=== PATIENT | male | born 1960 | race Caucasian/White ===

== ENCOUNTER → 2020-04-10 10:30 | Outpatient (BNVA) | payer BC, SELFPAY | PROVIDERS: PCP Internal Medicine; Visit Provider Urology | DX: N32.0 Bladder-neck obstruction (principal); C61 Malignant neoplasm of prostate; T19.0XXA Foreign body in urethra, initial encounter; X58.XXXA Exposure to other specified factors, initial encounter; Y93.9 Activity, unspecified; Y92.9 Unspecified place or not applicable; Y99.8 Other external cause status | CPT/HCPCS: 99212 ==

== ENCOUNTER → 2020-06-23 09:41 | Outpatient (BNVA) | payer SELFPAY | PROVIDERS: PCP Internal Medicine; Visit Provider Urology | DX: Z76.89 Persons encountering health services in other specified circumstances (principal) ==

== ENCOUNTER → 2020-07-07 10:41 | Outpatient (BNVA) | payer BC, SELFPAY | PROVIDERS: PCP Internal Medicine; Visit Provider Urology | DX: N39.3 Stress incontinence (female) (male) (principal); N32.81 Overactive bladder; N32.0 Bladder-neck obstruction; Z85.46 Personal history of malignant neoplasm of prostate | CPT/HCPCS: 81002 ==

== ENCOUNTER 2020-07-12 20:06 | Emergency (ER) | payer BC, SELFPAY ==
[2020-07-12 20:54] VITALS: BP 163/91; PULSE 92; RESP 16; TEMP 37; O2SAT 98; BMI 29.3
--- NOTE | 2020-07-12 21:15 | ED.MALEGU ---
HPI - Male Genitourinary General Chief complaint: Urogenital-Male Stated complaint: Trouble urinating Time Seen by Provider: 07/12/20 21:15 Source: patient Mode of arrival: ambulatory Limitations: no limitations History of Present Illness MD Complaint: other (urinary retention) Onset (ago): hour(s) (started at 4am TODAY) Duration: constant Location: penis Severity: similar to previous episodes Quality: aching Relieving factors: none Exacerbating factors: none Context: other (states since surgery in february for renal stones has had catheters, urinary incontinence, urinary retention, UTIs) Associated symptoms: Reports dysuria Related Data Home Medications Medication Instructions Recorded Confirmed glipizide 2.5 mg tablet, extended 2.5 mg PO DAILY 04/07/20 04/10/20 release 24 hr losartan 50 mg tablet 50 mg PO DAILY 04/07/20 04/10/20 metformin 500 mg tablet,extended 1,000 mg PO BID 04/07/20 04/10/20 release 24 hr pravastatin 20 mg tablet 20 mg PO BEDTIME 04/07/20 04/10/20 Previous Rx's Medication Instructions Recorded oxybutynin chloride 10 mg 10 mg PO DAILY 90 Days #90 tab 07/07/20 tablet,extended release 24 hr Allergies Allergy/AdvReac Type Severity Reaction Status Date / Time penicillin V Allergy Unknown Unknown Verified 07/12/20 21:01 Penicillins [PENICILLINS] Allergy Unknown TOLD Verified 07/12/20 21:01 CHILD NEVER TO TAKE AGAIN Review of Systems Review of Systems: Constitutional : No Fever, No Chills ENT/Mouth : No sore throat Eyes: No Eye Pain, No Swelling, No Redness Cardiovascular : No Chest Pain, No SOB Respiratory : No Cough, No Sputum, No Wheezing Gastrointestinal : no Nausea, no Vomiting, No Diarrhea, positive abdominal pain Genitourinary : positive Dysuria, no urinary frequency, positive Hematuria, no Flank Pain, positive retention Musculoskeletal : No joint pain, No Myalgias Skin : No Skin Lesions, No rash Neuro : No Weakness, No Numbness, No Headache Psych : No Anxiety/Panic, No Depression Heme/Lymph: No Bruising, No Lymphadenopathy Endocrine : No Polyuria, No Polydipsia All other systems reviewed and are negative PMFSH Past Medical History Attestation statement: The following information was validated with the patient. Source: old records reviewed Medical History Bladder neck stricture Kidney stones Overactive bladder Prostate cancer Stress incontinence Surgical History History of cystoscopy History of prostatectomy Family History Family History Father Prostate cancer Mother No problems noted. Social History Social History Smoked in Last 30 Days: No Use of substances other than those prescribed or required for medical reasons: No Advance Directives: No Advance Directives Information Provided: No Physical Exam Vital Signs: Vital Signs: Last Vital Signs Temp 98.6 F 07/12/20 20:54 Pulse 92 07/12/20 20:54 Resp 16 07/12/20 20:54 BP 163/91 H 07/12/20 20:54 Pulse Ox 98 07/12/20 20:54 Body Mass Index 29.3 Appearance: Alert. Oriented X3. No acute distress. Anxious Eyes: Pupils equal, round and reactive to light. ENT: Pharynx normal. Neck: Normal inspection. Neck supple. CVS: Normal heart rate and rhythm. Pulses normal. Respiratory: No respiratory distress. Breath sounds normal. Abdomen: Soft and mild suprapubic tenderness no rebound or guarding Skin: Skin warm and dry. Normal skin color. Normal skin turgor. Extremities: No lower extremity edema. No calf ttp Neuro: Oriented X 3. No motor deficit. No sensory deficit. Course Course Course Narrative: attempt at chandra placement then blood clots came out after and since patient is able to void, no further bleeding, the clots have resolved, he doesn't want a chandra now since he can void, will follow up with his urologist, unsure was clots are from - CT scan unchanged just prior to DC started to have bloody urine - wants chandra, will irrigate and place chandra catheter placed with Dr. Hernandez no further bleeding, urine is clear, suspect iatrogenic injury with first attempt at catheter MDM - Male Genitourinary MDM Narrative Medical decision making narrative: 60 yo male with hx of stones, prostate cancer s/p prostatectomy now with bouts of UTI, incontinence and retention, has had chandra's before at this time will need labs, UA, CT scan for stone, chandra catheter placement dispo per results and findings. Lab Data Result diagrams: 07/12/20 22:56 07/12/20 22:56 Labs: Lab Results 07/12/20 07/12/20 07/12/20 Range/Units 22:50 22:56 22:56 WBC 4.9 (4.8-10.8) X10*3/uL RBC 4.45 L (4.60-5.80) X10*6/uL Hgb 14.1 (14.0-18.0) g/dl Hct 41.4 L (42-52) % MCV 93.0 (80-98) fL MCH 31.7 (27.0-33.0) pg MCHC 34.1 (31.0-36.0) g/dl RDW 12.2 (11.0-16.0) % Plt Count 159 L (160-400) X10*3/uL MPV 10.7 (9.4-12.4) fL Immature Gran % (Auto) 0.4 (0.0-0.4) % Neut % (Auto) 58.3 (45-73) % Lymph % (Auto) 23.8 (20-40) % [place] % (Auto) 14.9 H (2-11) % Eos % (Auto) 1.8 (0-4) % Baso % (Auto) 0.8 (0-2) % Lymph # (Auto) 1.2 (1.2-4.9) X10*3/uL [place] # (Auto) 0.7 (0.1-1.2) X10*3/uL Eos # (Auto) 0.1 (0.0-0.4) X10*3/uL Baso # (Auto) 0.0 (0.0-0.2) X10*3/uL Abs Immat Gran (auto) 0.02 (0.00-0.03) X10*3/uL Absolute Neuts (auto) 2.9 (2.0-8.3) X10*3/uL Absolute Nucleated RBC 0.000 (0.0-0.012) X10*3/uL Nucleated RBC % (auto) 0.0 (0.0-0.2) /100WBC Smear Tech's Comments VERIFIED Sodium 142 (135-145) mmol/L Potassium 4.1 (3.3-5.1) mmol/l Chloride 106 (96-108) mmol/L Carbon Dioxide 24 (22-29) mmol/L Anion Gap 16 (12-20) BUN 19 H (9-16) mg/dL Creatinine 1.14 (0.5-1.4) mg/dL Estim Creat Clear Calc 72.2 Estimated GFR > 60 Random Glucose 193 H (60-115) mg/dL Calcium 9.1 (8.4-10.2) mg/dL Magnesium (1.6-2.6) mg/dL Total Bilirubin (0.0-1.0) mg/dL Direct Bilirubin (0.0-0.5) mg/dL AST (5-37) U/L ALT (0-40) U/L Alkaline Phosphatase (39-117) U/L Total Protein (6.5-8.0) g/dL Albumin (3.5-5.0) g/dL Lipase (8-78) U/L Urine Color RED Urine Appearance CLOUDY Urine pH 5.5 (5.0-8.0) Ur Specific [place] >= 1.030 H (1.005-1.025) Urine Protein 1+ H (NEG-TRACE) MG/DL Urine Glucose (UA) NEG (NEG) MG/DL Urine Ketones 5 (NEG) MG/DL Urine Blood 3+ H (NEG) Urine Nitrite NEG (NEG) Ur Leukocyte Esterase NEG (NEG) Urine RBC TNTC H (0) /HPF Urine WBC 0 (0-4) /HPF Ur Squamous Epith Cells 1+ /LPF Urine Bacteria NONE /LPF 07/12/20 Range/Units 22:56 WBC (4.8-10.8) X10*3/uL RBC (4.60-5.80) X10*6/uL Hgb (14.0-18.0) g/dl Hct (42-52) % MCV (80-98) fL MCH (27.0-33.0) pg MCHC (31.0-36.0) g/dl RDW (11.0-16.0) % Plt Count (160-400) X10*3/uL MPV (9.4-12.4) fL Immature Gran % (Auto) (0.0-0.4) % Neut % (Auto) (45-73) % Lymph % (Auto) (20-40) % [place] % (Auto) (2-11) % Eos % (Auto) (0-4) % Baso % (Auto) (0-2) % Lymph # (Auto) (1.2-4.9) X10*3/uL [place] # (Auto) (0.1-1.2) X10*3/uL Eos # (Auto) (0.0-0.4) X10*3/uL Baso # (Auto) (0.0-0.2) X10*3/uL Abs Immat Gran (auto) (0.00-0.03) X10*3/uL Absolute Neuts (auto) (2.0-8.3) X10*3/uL Absolute Nucleated RBC (0.0-0.012) X10*3/uL Nucleated RBC % (auto) (0.0-0.2) /100WBC Smear Tech's Comments Sodium (135-145) mmol/L Potassium (3.3-5.1) mmol/l Chloride (96-108) mmol/L Carbon Dioxide (22-29) mmol/L Anion Gap (12-20) BUN (9-16) mg/dL Creatinine (0.5-1.4) mg/dL Estim Creat Clear Calc Estimated GFR Random Glucose (60-115) mg/dL Calcium (8.4-10.2) mg/dL Magnesium 1.7 (1.6-2.6) mg/dL Total Bilirubin 0.3 (0.0-1.0) mg/dL Direct Bilirubin < 0.2 (0.0-0.5) mg/dL AST 25 (5-37) U/L ALT 38 (0-40) U/L Alkaline Phosphatase 46 (39-117) U/L Total Protein 7.0 (6.5-8.0) g/dL Albumin 4.3 (3.5-5.0) g/dL Lipase 25 (8-78) U/L Urine Color Urine Appearance Urine pH (5.0-8.0) Ur Specific [place] (1.005-1.025) Urine Protein (NEG-TRACE) MG/DL Urine Glucose (UA) (NEG) MG/DL Urine Ketones (NEG) MG/DL Urine Blood (NEG) Urine Nitrite (NEG) Ur Leukocyte Esterase (NEG) Urine RBC (0) /HPF Urine WBC (0-4) /HPF Ur Squamous Epith Cells /LPF Urine Bacteria /LPF Discharge Plan Discharge Clinical Impression: Acute urinary retention, Chandra catheter in place Hematuria Qualifiers: Hematuria type: gross Qualified Code(s): R31.0 - Gross hematuria Patient Disposition: Home, Self-Care Instructions: Urinary Retention in Men (ED), Chandra Catheter Placement and Care (ED) Additional Instructions: return to ED for any worsening symptoms or concerns IF YOU CANNOT VOID IN THE NEXT [address] SCAN FINDINGS FROM TODAY BLADDER: Nondistended. Hyperattenuating linear material is noted at the posteroinferior aspect of the urinary bladder (6:63/140) most of which appears external to the urinary bladder and may reflect suture material from prior surgery. There is a small round hyperattenuating structure which appears to be in the posterior urinary bladder (6:68/40) measuring up to 0.5 cm which may reflect a small urinary bladder calculus. Of note, this finding is unchanged relative to 02/27/2020 examination. PLEASE FOLLOW UP WITH YOUR UROLOGIST to have chandra assessed and removed in next week Prescriptions: No Action metformin 500 mg tablet extended release 24 hr 1,000 mg PO BID RF: 0 pravastatin 20 mg tablet 20 mg PO BEDTIME RF: 0 glipizide 2.5 mg tablet extended release 24hr 2.5 mg PO DAILY RF: 0 losartan 50 mg tablet 50 mg PO DAILY RF: 0 oxybutynin chloride 10 mg tablet extended release 24hr 10 mg PO DAILY 90 Days Qty: 90 RF: 0
--- NOTE | 2020-07-12 21:25 | CT_ITS ---
EXAMINATION: CT ABDOMEN AND PELVIS WITHOUT CONTRAST CLINICAL INFORMATION: Urinary retention. History of stones. COMPARISON: CT abdomen and pelvis dated 02/27/2020. TECHNIQUE: Multidetector volumetric imaging was performed from the superior aspect of the liver through the pubic symphysis. Sagittal and coronal reformatted images were obtained on the technologist's workstation. This CT examination was performed using dose optimization techniques as appropriate, variously including the following: *Automated exposure control *Adjustment of mA and/or kV according to patient size (this includes techniques or standardized protocols for targeted exams where dose is matched to indication/reason for exam; i.e. extremities or head) *Use of iterative reconstruction technique DLP: 705 mGy-cm FINDINGS: LINES AND TUBES: None. LOWER THORAX: The lung bases are clear. Heart is normal in size. No pericardial effusion or thickening. HEPATOBILIARY: The liver is normal in size and contour. Areas of parenchymal attenuation less than 40 Hounsfield units compatible with steatotic changes. No focal hepatic lesions. The gallbladder is present and otherwise unremarkable. No biliary dilatation. SPLEEN: Normal. PANCREAS: Normal. ADRENALS: Normal. KIDNEYS/URETERS: Tiny punctate nonobstructive right lower pole calculus (5:53/102). Ureters are normal throughout their course bilaterally. BLADDER: Nondistended. Hyperattenuating linear material is noted at the posteroinferior aspect of the urinary bladder (6:63/140) most of which appears external to the urinary bladder and may reflect suture material from prior surgery. There is a small round hyperattenuating structure which appears to be in the posterior urinary bladder (6:68/40) measuring up to 0.5 cm which may reflect a small urinary bladder calculus. Of note, this finding is unchanged relative to 02/27/2020 examination. PELVIC ORGANS: The prostate and seminal vesicles are not definitively visualized. Correlate with surgical history. GI TRACT: No dilated or thick walled loops of bowel. The appendix is unremarkable. PERITONEUM/RETROPERITONEUM AND MESENTERY: No free air or fluid. LYMPH NODES: No pathologically enlarged lymph nodes. VESSELS: Normal in caliber. Mild aortic atherosclerotic calcification. BONES AND SOFT TISSUES: No aggressive osseous lesions. Mild bilateral hip arthrosis and os acetabuli. Multilevel endplate degenerative changes of the thoracolumbar spine. CT/CT abdomen pelvis wo con IMPRESSION: Hepatic steatosis. Punctate nonobstructive right renal calculus in the lower pole. Question, unchanged tiny urinary bladder calculus. Nonvisualized prostate and seminal vesicles. Correlate with prior surgical history. Mild bilateral hip arthrosis.
[2020-07-12] MEDS: Lidocaine HCl 2 % Urojet 10 ML JEL.PF.APP TOPICAL (21:55)
--- NOTE | 2020-07-12 22:04 | PC.NURSE ---
attempted to place folley catheter and blood passed insteaded will consult .
--- NOTE | 2020-07-12 22:13 | PC.NURSE ---
PT BLADDER SCANNED AND 641 ML IN BLADDER PER DR. SAMPSON APPLY SMALLER CATHETER.
--- NOTE | 2020-07-12 22:51 | PC.NURSE ---
PT WAS ABLE TO URINATE MORE IN URINAL BLADDER SCAN 2ND TIME 281ML.
--- NOTE | 2020-07-12 22:52 | PC.NURSE ---
PER MD NO CATHETER AT THIS TIME URINE MORE CLEAR FROM URINAL.
[2020-07-12 23:08] LABS: Glucose Urine UA NEG (NEG); Leukocyte Esterase Urine NEG (NEG); Nitrite Urine NEG (NEG); PH 5.5 (5.0-8.0); Specific Gravity - Urine >= 1.030 (1.005-1.025); Urine Blood 3+ (NEG); Urine Ketones 5 MG/DL (NEG); Urine Protein 1+ MG/DL (NEG-TRACE)
[2020-07-12 23:08] LABS: Basophils Percent Auto 0.8 % (0-2); Eosinophils Absolute Auto 0.1 X10*3/uL (0.0-0.4); Hematocrit 41.4 % (42-52); Hemoglobin 14.1 g/dl (14.0-18.0); MANUAL DIFF FLAG SCAN; Mean Corpuscular HGB Conc 34.1 g/dl (31.0-36.0); Mean Platelet Volume 10.7 fL (9.4-12.4); Neutrophils Absolute Auto 2.9 X10*3/uL (2.0-8.3); PLT CLUMP 1; Red Cell Distribution Width 12.2 % (11.0-16.0); SCAN SMEAR FLAG 1
[2020-07-12 23:09] LABS: Appearance Urine CLOUDY; Color Urine RED; RBC Urine TNTC /HPF (0); Squamous Epithelial Cell Urine 1+ /LPF; WBC Urine 0 /HPF (0-4)
[2020-07-12 23:10] LABS: Eosinophils Percent Auto 1.8 % (0-4); Imm Gran Abs Auto 0.02 X10*3/uL (0.00-0.03); Imm Gran Pct Auto 0.4 % (0.0-0.4); Lymphocytes Absolute Auto 1.2 X10*3/uL (1.2-4.9); Lymphocytes Percent Auto 23.8 % (20-40); Mean Corpuscular Hemoglobin 31.7 pg (27.0-33.0); Monocytes Absolute Auto 0.7 X10*3/uL (0.1-1.2); Monocytes Percent Auto 14.9 % (2-11); Neutrophils Percent Auto 58.3 % (45-73); Red Blood Count 4.45 X10*6/uL (4.60-5.80); White Blood Count 4.9 X10*3/uL (4.8-10.8)
[2020-07-12 23:29] LABS: Anion Gap 16 (12-20); Blood Urea Nitrogen 19 mg/dL (9-16); Calcium 9.1 mg/dL (8.4-10.2); Carbon Dioxide 24 mmol/L (22-29); Chloride 106 mmol/L (96-108); Creatinine Clr Calc Pharmacy 72.2; Estimated Glomerular Filt Rate > 60; Glucose Random 193 mg/dL (60-115); Platelet Count 159 X10*3/uL (160-400); Potassium 4.1 mmol/l (3.3-5.1); SLIDE REVIEW VERIFIED; Sodium 142 mmol/L (135-145)
[2020-07-12 23:31] LABS: Alanine Aminotransferase 38 U/L (0-40); Albumin Level 4.3 g/dL (3.5-5.0); Alkaline Phosphatase 46 U/L (39-117); Aspartate Amino Transferase 25 U/L (5-37); Bilirubin Direct < 0.2 mg/dL (0.0-0.5); Bilirubin Total 0.3 mg/dL (0.0-1.0); Lipase 25 U/L (8-78); Magnesium 1.7 mg/dL (1.6-2.6)
--- NOTE | 2020-07-12 23:50 | PC.NURSE ---
pt was going to be d/c home but he became increased nervous of the increased clots in him urinal. dr david ordered [address] catheter.
[2020-07-13] MEDS: Lidocaine HCl 2 % Urojet 10 ML JEL.PF.APP TOPICAL ×2 (00:05→00:43)
--- NOTE | 2020-07-13 00:39 | PC.NURSE ---
attempted to place catheter by yayo zuniga un able to place only blood and clots came out. md arceo at bedside to place catheter.
--- NOTE | 2020-07-13 01:29 | PC.NURSE ---
CATHETER PLACED BY MD ERVIN WITH GUIDE COUDE WITH 14 FR NO BLOOD IN BLADDER.
== END 2020-07-13 02:15 | disposition home or self-care (01) ==
PROVIDERS: Emergency Provider Emergency Medicine; PCP Internal Medicine
DX: R33.9 Retention of urine, unspecified (principal); R31.0 Gross hematuria; Z79.899 Other long term (current) drug therapy
CPT/HCPCS: 36415; 74176; 80048; 80076; 81001; 81003; 83690; 83735; 85025; 99284